=== PATIENT | male | born 1955 | race Caucasian/White ===

== ENCOUNTER 2023-10-05 18:12 | Outpatient (REF) | payer MEDICARE, MEDICAID, SELFPAY ==
[2023-10-05 19:06] LABS: Iron 25 ug/dL (65-175); Total Iron Binding Capacity 294 ug/dL (250-450); Transferrin Sat 9 % (20-55)
== END 2023-10-05 18:13 | disposition home or self-care (01) ==
LOC: LBN 18:12
PROVIDERS: PCP Family Medicine; Visit Provider Nurse Practitioner Family
DX: R53.83 Other fatigue (principal); E61.1 Iron deficiency
CPT/HCPCS: 80164; 83540; 83550

== ENCOUNTER 2023-10-06 11:18 | Outpatient (REF) | payer MEDICARE, MEDICAID, SELFPAY ==
[2023-10-06 13:50] LABS: VALPROIC ACID 62.2 ug/mL
== END 2023-10-06 11:19 | disposition home or self-care (01) ==
LOC: LBN 11:18
PROVIDERS: PCP Family Medicine; Visit Provider Nurse Practitioner Family
DX: F25.9 Schizoaffective disorder, unspecified (principal); Z51.81 Encounter for therapeutic drug level monitoring; Z79.899 Other long term (current) drug therapy
CPT/HCPCS: 80164